=== PATIENT | male | born 1955 | race Caucasian/White ===

== ENCOUNTER 2017-02-26 08:45 | Emergency (ER) | payer OTHER ==
--- NOTE | 2017-02-26 09:25 | ER Document Report ---
ED Medical Screen (RME) - General Chief Complaint: Lower Abdominal Pain Stated Complaint: BLOOD IN URINE Notes: Patient is complaining of blood in urine for the past week. Patient has a history of bladder and prostate cancer with removal of these organs in [place] in November,. He has a urostomy bag. He has and doing well and is scheduled for his one-year checkup later this month. This bleeding started about a week ago. He has some discomfort in his lower abdomen, but no other symptoms of a UTI. Unaware of any fever. TRAVEL OUTSIDE OF THE [place] IN LAST 30 DAYS: No - Related Data Allergies/Adverse Reactions: No Known Allergies Allergy (Verified 02/26/17 08:58) Past Medical History - Past Medical History Cardiac Medical History: Reports: Hx Hypertension - on meds Denies: Hx Coronary Artery Disease, Hx Heart Attack Pulmonary Medical History: Denies: Hx Asthma, Hx Bronchitis, Hx COPD - denies, Hx Pneumonia Neurological Medical History: Denies: Hx Cerebrovascular Accident, Hx Seizures Renal/ Medical History: Denies: Hx Peritoneal Dialysis Musculoskeltal Medical History: Denies Hx Arthritis - Immunizations Hx Diphtheria, Pertussis, Tetanus Vaccination: - unsure
[2017-02-26 09:40] LABS: ABSOLUTE LYMPHOCYTES (AUTO) 1.4 10^3/uL (0.5-4.7); ABSOLUTE MONOCYTES (AUTO) 1.9 10^3/uL (0.1-1.4); ABSOLUTE NEUT (AUTO) 12.8 10^3/uL (1.7-8.2); BASOPHILS % (AUTO) 0.3 % (0-2); EOSINOPHILS % (AUTO) 0.2 % (0-6); HEMATOCRIT 44.1 % (37.9-51.0); HEMOGLOBIN 14.9 g/dL (13.5-17.0); HGB HCT DIFFERENCE 0.6; LYMPHOCYTES % (AUTO) 8.6 % (13-45); MEAN CORPUSCULAR HEMOGLOBIN 29.5 pg (27.0-33.4); MEAN CORPUSCULAR HGB CONC 33.8 g/dL (32.0-36.0); MEAN CORPUSCULAR VOLUME 87 fl (80-97); MONOCYTES % (AUTO) 11.5 % (3-13); RED BLOOD COUNT 5.07 10^6/uL (4.35-5.55); RED CELL DISTRIBUTION WIDTH 14.7 % (11.5-14.0); SEGMENTED NEUTROPHILS % (AUTO) 79.4 % (42-78); WHITE BLOOD COUNT 16.1 10^3/uL (4.0-10.5)
--- NOTE | 2017-02-26 09:53 | ER Document Report ---
ED General - General Chief Complaint: Lower Abdominal Pain Stated Complaint: BLOOD IN URINE Time seen by provider: 09:48 Mode of Arrival: Ambulatory Information source: Patient Notes: 61-year-old male who reports seeing what he thinks is blood in his urostomy bag approximately week ago and then the next day began developing diffuse abdominal pain and bilateral chest pain. He reports chest and all pain occurs at the same time and is intermittent in nature not associated with eating or exertion. He denies associated fever, chills, vomiting, cough, or shortness of breath or he does report occasional nausea with the discomfort. He denies hematemesis , hemorrhages, or melena. He does think he might of been constipated for the past 2 days. He reports no prior history of pain like this. Physical Exam: General: Alert, appears well. HEENT: Normocephalic. Atraumatic. PERRLA. Extraocular movements intact. Oropharynx clear. Mucous membranes moist Neck: Supple. Non-tender. Respiratory: No respiratory distress. Clear and equal breath sounds bilaterally. Cardiovascular: Regular rate and rhythm. PMI not displaced nontender to palpation Abdominal: Normal Inspection. Urostomy site appears healthy. Mild tenderness in all 4 quadrants no guarding rebound rigidity or referred pain normal male testes downgoing no hernias no masses no tenderness rectal normal tone and brown stool no masses not tender Back: Non-tender. No deformity or step off. Extremities: Moves all four extremities. Upper extremities: Normal inspection. Non-tender. Normal color. Normal ROM. Normal temperature. Lower extremities: Normal inspection. Non-tender. No edema. Normal color. Normal ROM. Normal temperature. Neurological: Speech clear mentation normal moves all 4 extremities well Psychological: Normal affect. Normal Mood. Skin: Warm. Dry. Normal color. TRAVEL OUTSIDE OF THE [place] IN LAST 30 DAYS: No - Related Data Allergies/Adverse Reactions: No Known Allergies Allergy (Verified 02/26/17 08:58) Past Medical History - Social History Smoking Status: Current Every Day Smoker Family History: None Patient has suicidal ideation: No Patient has homicidal ideation: No - Past Medical History Cardiac Medical History: Reports: Hx Hypertension - on meds Denies: Hx Coronary Artery Disease, Hx Heart Attack Pulmonary Medical History: Denies: Hx Asthma, Hx Bronchitis, Hx COPD - denies, Hx Pneumonia Neurological Medical History: Denies: Hx Cerebrovascular Accident, Hx Seizures Renal/ Medical History: Denies: Hx Peritoneal Dialysis Musculoskeltal Medical History: Denies Hx Arthritis Past Surgical History: Reports: Hx Genitourinary Surgery - Surgery removed bladder and prostate [facility] - Immunizations Hx Diphtheria, Pertussis, Tetanus Vaccination: - unsure Review of Systems - Review of Systems Constitutional: denies: Chills, Fever EENT: denies: Ear pain, Throat pain Cardiovascular: See HPI Respiratory: denies: Cough, Short of breath Gastrointestinal: See HPI Genitourinary: Hematuria Male Genitourinary: denies: Testicular pain Musculoskeletal: denies: Back pain, Leg swelling, Ankle swelling Skin: denies: Rash Hematologic/Lymphatic: denies: Swollen glands Neurological/Psychological: denies: Weakness, Numbness Physical Exam - Vital signs Vitals: Temp Pulse Resp BP Pulse Ox 98.3 F 124 H 16 115/86 H 98 02/26/17 09:00 02/26/17 09:00 02/26/17 09:00 02/26/17 09:00 02/26/17 09:00 Course - Re-evaluation Re-evalutation: 02/26/17 12:39 Urinalysis results consistent with urinary tract infection. Patient was placed on antibiotics and told medicine for pain and nausea Patient's LFTs are mildly elevated and he has numerable areas suspicious for liver metastases on CT scan and ultrasound. Patient had an appointment with his oncologist Dr. Combs at 9:00 this morning but came here instead. I discussed the above CT findings with her office and they asked that the patient come in tomorrow at 10:00 for follow-up. Patient also be followed up for UTI symptoms at that point. The request have ordered a CEA to be added to his labs here. Patient received chemotherapy through that office prior to having his bladder resection to [place] last year. 02/26/17 12:43 - Vital Signs Vital signs: Temp Pulse Resp BP Pulse Ox 98.3 F 124 H 16 115/86 H 98 02/26/17 09:00 02/26/17 09:00 02/26/17 09:00 02/26/17 09:00 02/26/17 09:00 - Laboratory Result Diagrams: 02/26/17 09:15 02/26/17 09:15 Laboratory results interpreted by me: 02/26/17 02/26/17 02/26/17 09:15 09:15 09:15 WBC 16.1 H RDW 14.7 H Seg Neutrophils % 79.4 H Lymphocytes % 8.6 L Absolute Neutrophils 12.8 H Absolute Monocytes 1.9 H Sodium 132.4 L Chloride 96 L Carbon Dioxide 20 L BUN 34 H Glucose 374 H Total Bilirubin 2.6 H Direct Bilirubin 1.8 H AST 154 H ALT 164 H Alkaline Phosphatase 469 H Creatine Kinase 342 H Lipase 320.1 H Urine Protein Urine Glucose (UA) Urine Blood Urine Urobilinogen Ur Leukocyte Esterase 02/26/17 09:45 WBC RDW Seg Neutrophils % Lymphocytes % Absolute Neutrophils Absolute Monocytes Sodium Chloride Carbon Dioxide BUN Glucose Total Bilirubin Direct Bilirubin AST ALT Alkaline Phosphatase Creatine Kinase Lipase Urine Protein 100 H Urine Glucose (UA) 50 H Urine Blood LARGE H Urine Urobilinogen 2.0 H Ur Leukocyte Esterase MODERATE H 02/26/17 12:39 - Diagnostic Test Radiology reviewed: Image reviewed, Reports reviewed - EKG Interpretation by Me Additional EKG results interpreted by me: 02/26/17 10:07 EKG reviewed by myself sinus tachycardia 114 no acute changes Discharge - Discharge Clinical Impression: Liver masses, History of bladder cancer UTI (urinary tract infection) Qualifiers: Urinary tract infection type: site unspecified Hematuria presence: with hematuria Qualified Code(s): N39.0 - Urinary tract infection, site not specified ; R31.9 - Hematuria, unspecified Condition: Stable Disposition: HOME, SELF-CARE Instructions: Urinary Tract Infection ([facility]) Additional Instructions: The CT scan and ultrasound done today showed areas in your liver that we're concerned represent cancer. See Dr. Combs at her office tomorrow at 10:00 AM for further evaluation of this. Return to emergency department for fever over 101, worse pain, vomiting, or other problems Prescriptions: Cephalexin Monohydrate [Keflex 500 mg Capsule] 500 mg PO QID #40 capsule Promethazine HCl [Phenergan 25 mg Tablet] 1 tab PO Q6H PRN #15 tablet PRN Reason: Tramadol HCl 50 mg PO BID #20 tablet Referrals: ANA COMBS MD [ACTIVE STAFF] - Follow up tomorrow
[2017-02-26 09:55] LABS: ALANINE AMINOTRANSFERASE 164 U/L (21-72); ALBUMIN 3.8 g/dL (3.5-5.0); ALKALINE PHOSPHATASE 469 U/L (38-126); ANION GAP 16 (5-19); ASPARTATE AMINO TRANSFERASE 154 U/L (17-59); BILIRUBIN,DIRECT 1.8 mg/dL (0.0-0.4); BILIRUBIN,TOTAL 2.6 mg/dL (0.2-1.3); BLOOD UREA NITROGEN 34 mg/dL (7-20); CALCIUM 9.7 mg/dL (8.4-10.2); CARBON DIOXIDE 20 mmol/L (22-30); CHLORIDE 96 mmol/L (98-107); CREATININE RESULT 1.02 mg/dL (0.52-1.25); GLUCOSE 374 mg/dL (75-110); LIPASE 320.1 U/L (23-300); POTASSIUM 4.2 mmol/L (3.6-5.0); SODIUM 132.4 mmol/L (137-145); TOTAL PROTEIN 7.4 g/dL (6.3-8.2)
[2017-02-26 09:56] LABS: PROTHROMBIN TIME 14.5 SEC (11.4-15.4)
[2017-02-26 10:11] LABS: AMORPHOUS SEDIMENT,URINE TRACE /HPF; APPEARANCE,URINE CLOUDY; BILIRUBIN,URINE NEGATIVE (NEGATIVE); GLUCOSE, URINE 50 mg/dL (NEGATIVE); KETONES,URINE NEGATIVE (NEGATIVE); LEUKOCYTE ESTERASE,URINE MODERATE (NEGATIVE); NITRITE,URINE NEGATIVE (NEGATIVE); PROTEIN,URINE 100 mg/dL (NEGATIVE); URINE SPECIFIC GRAVITY 1.012
[2017-02-26 11:05] LABS: CREATINE KINASE 342 U/L (55-170)
[2017-02-26 11:06] LABS: ALCOHOL < 10 mg/dL (NONE DETECTED)
[2017-02-26 12:41] LABS: CREATINE KINASE MB 0.51 ng/mL (<4.55)
[2017-02-26 12:47] LABS: TROPONIN I < 0.012 ng/mL
[2017-02-26 13:05] VITALS: BP 113/82
--- NOTE | 2017-02-26 13:30 | EKG REPORT ---
SEVERITY:- BORDERLINE ECG - SINUS TACHYCARDIA PROBABLE LEFT ATRIAL ABNORMALITY LOW VOLTAGE IN FRONTAL LEADS : Confirmed by: Evelio Barbosa MD 26-Feb-2017 13:30:20
== END 2017-02-26 13:05 | disposition home or self-care (01) ==
LOC: ER 08:45
DX: R16.0 Hepatomegaly, not elsewhere classified (principal); N39.0 Urinary tract infection, site not specified; R31.9 Hematuria, unspecified; R10.30 Lower abdominal pain, unspecified; K59.00 Constipation, unspecified; I10 Essential (primary) hypertension; Z85.51 Personal history of malignant neoplasm of bladder; Z93.6 Other artificial openings of urinary tract status
CPT/HCPCS: 36415; 74177; 76700; 80053; 80307; 81001; 82272; 82378; 82550; 82553; 83690; 84484; 85025; 85610; 87086; 87088; 87186; 93005; 93010; 99284

== ENCOUNTER 2017-02-28 10:02 | Day surgery (SDC) | payer OTHER ==
[2017-02-28 10:37] LABS: HEMATOCRIT 41.8 % (37.9-51.0); HEMOGLOBIN 14.7 g/dL (13.5-17.0); HGB HCT DIFFERENCE 2.3; MEAN CORPUSCULAR HEMOGLOBIN 29.7 pg (27.0-33.4); MEAN CORPUSCULAR HGB CONC 35.1 g/dL (32.0-36.0); MEAN CORPUSCULAR VOLUME 85 fl (80-97); RED BLOOD COUNT 4.94 10^6/uL (4.35-5.55); RED CELL DISTRIBUTION WIDTH 14.5 % (11.5-14.0); WHITE BLOOD COUNT 10.6 10^3/uL (4.0-10.5)
[2017-02-28 10:46] LABS: PROTHROMBIN TIME 13.4 SEC (11.4-15.4)
[2017-02-28 10:47] LABS: PARTIAL THROMBOPLASTIN TIME 37.4 SEC (23.5-35.8)
[2017-02-28] MEDS ORDERED: MIDAZOLAM 2 MG/2 ML INJ ONE (11:23)
[2017-02-28] MEDS ORDERED: FENTANYL CITRATE INJ/PF 100 MCG/2 ML AMPUL ONE (11:23)
[2017-02-28 14:11] VITALS: BP 136/83
== END 2017-02-28 14:10 | disposition home or self-care (01) ==
LOC: RAD 10:02
PROVIDERS: ATTEND Internal Medicine Medical Oncology
PROC: 0FB13ZX Excision of Right Lobe Liver, Percutaneous Approach, Diagnostic (ICD-10-PCS; principal; 2017-02-28)
DX: C7A.1 Malignant poorly differentiated neuroendocrine tumors (principal); Z85.46 Personal history of malignant neoplasm of prostate; Z85.51 Personal history of malignant neoplasm of bladder
CPT/HCPCS: 36415; 82962; 85027; 85610; 85730; 88342 ×2; 88341 ×2; 88305 ×2; 77012; 47000; J2250; J3010

== ENCOUNTER → 2017-03-07 | Outpatient (CLI) | payer OTHER | LOC: RAD 13:22 | PROVIDERS: ATTEND Internal Medicine Medical Oncology | DX: C67.9 Malignant neoplasm of bladder, unspecified (principal); C78.7 Secondary malignant neoplasm of liver and intrahepatic bile duct | CPT/HCPCS: 71260 ==

== ENCOUNTER → 2017-05-07 | Outpatient (CLI) | payer OTHER ==
--- NOTE | 2017-05-07 10:25 | RADIOLOGY REPORT (SQ) ---
EXAM DESCRIPTION: CT CHEST WITH COMPLETED DATE/TIME: 05/07/2017 10:09 am REASON FOR STUDY: BLADDER CANCER C67.9 MALIGNANT NEOPLASM OF BLADDER, UNSPECIFIED COMPARISON: None. TECHNIQUE: CT scan of the chest performed using helical scanning technique with dynamic intravenous contrast injection. Images reviewed with lung, soft tissue and bone windows. Reconstructed coronal and sagittal MPR images reviewed. All images stored on PACS. All CT scanners at this facility use dose modulation, iterative reconstruction, and/or weight based d osing when appropriate to reduce radiation dose to as low as reasonably achievable (ALARA). [facility]: Dose Right [facility]: CareDose [facility]: Dose Right [facility]: Teradose 4D [facility]: Rivalfox CONTRAST TYPE AND DOSE: contrast/concentration: Isovue 370.00 mg/ml; Total Contrast Delivered: 70.0 ml; Total Saline Delivered: 66.1 ml RENAL FUNCTION: Creatinine 0.5 BUN 17 RADIATION DOSE: Up-to-date CT equipment and radiation dose reduction techniques were employed. CTDIv ol: 5.5 - 13.1 mGy. DLP: 824 mGy-cm. . LIMITATIONS: None. FINDINGS: LUNGS AND PLEURA: No opacities, nodules, masses. No pneumothorax. No effusions. HILAR AND MEDIASTINAL STRUCTURES: No identified masses or abnormal nodes. HEART AND VASCULAR STRUCTURES: There is a minimal pericardiac effusion. HARDWARE: None in the chest. UPPER ABDOMEN: See separate report of the CT of the abdomen. THYROID AND OTHER SOFT TISSUES: No masses. No adenopathy. BONES: No significant finding. OTHER: No other significant finding. IMPRESSION: Minimal pericardial effusion. There is no evidence of metastases in chest. TECHNICAL DOCUMENTATION: JOB ID: [id number] Quality ID # [id number]: Final reports with documentation of one or more dose reduction techniques (e.g., Au tomated exposure control, adjustment of the mA and/or kV according to patient size, use of iterative reconstruction technique) 2010 [employer]- All Rights Reserved
--- NOTE | 2017-05-07 10:48 | RADIOLOGY REPORT (SQ) ---
EXAM DESCRIPTION: CT ABDOMEN IV CONTRAST ONLY COMPLETED DATE/TIME: 05/07/2017 10:09 am REASON FOR STUDY: BLADDER CANCER C67.9 MALIGNANT NEOPLASM OF BLADDER, UNSPECIFIED COMPARISON: 02/26/2017 TECHNIQUE: CT scan of the abdomen performed with intravenous and without oral contrast using helical scanning technique with dynamic intravenous contrast injection. Images reviewed with lung, soft tiss ue, and bone windows. Reconstructed coronal and sagittal MPR images reviewed. Delayed images for eval uation of the urinary system also acquired and evaluated. All images stored on PACS. All CT scanners at this facility use dose modulation, iterative reconstruc tion, and/or weight based dosing when appropriate to reduce radiation dose to as low as reasonably ac hievable (ALARA). [facility]: Dose Right [facility]: CareDose [facility]: Dose Right [facility]: Teradose 4D [facility]: BitPoster CONTRAST TYPE AND DOSE: 70 Isovue 370- low osmolar. RENAL FUNCTION: Creatinine 0.5 BUN 17 RADIATION DOSE: 24.7 mGy. LIMITATIONS: None. FINDINGS: LOWER CHEST: See separate report of the CT of the chest. LIVER: The overall appearance of the liver is markedly improved from the earlier study from 7. There is a nonspecific 8 mm hypodensity in the right lobe of the liver on image 56 series 2 PE th is appears to enhance peripherally, suggesting a possible hemangioma. There is a 25 mm low- density lesion on image 30 series 3. This shows no significant enhancement, but is of greater density than a simple cyst. SPLEEN: Normal size. No focal lesions. PANCREAS: No masses. No significant calcifications. No adjacent inflammation or peripancreatic fluid collections. Pancreatic duct not dilated. GALLBLADDER: No identified stones by CT criteria. No inflammatory changes to suggest cholecystitis. ADRENAL GLANDS: No significant masses or asymmetry. RIGHT KIDNEY AND URETER: No solid masses. No significant calcifications. No hydronephrosis or hyd roureter. LEFT KIDNEY AND URETER: No solid masses. There is a 6 cm cyst on the upper pole the left kidney. N o significant calcifications. No hydronephrosis or hydroureter. AORTA AND VESSELS: No aneurysm. No dissection. Renal arteries, SMA, celiac without stenosis. RETROPERITONEUM: No retroperitoneal adenopathy, hemorrhage or masses. BOWEL AND PERITONEAL CAVITY: No masses or inflammatory changes. No free fluid or peritoneal masses. APPENDIX: Not included ABDOMINAL WALL: No masses. No hernias. BONES: No significant or acute findings. OTHER: There appears to be an ileostomy. The suggests patient has an ileal loop. IMPRESSION: There is marked improvement in the appearance of the liver with 2 low-density lesions as described. TECHNICAL DOCUMENTATION: JOB ID: [id number] Quality ID # [id number]: Final reports with documentation of one or more dose reduction techniques (e.g., Au tomated exposure control, adjustment of the mA and/or kV according to patient size, use of iterative reconstruction technique) 2010 [employer]- All Rights Reserved
== END ==
LOC: RAD 09:02
PROVIDERS: ATTEND Internal Medicine Medical Oncology
DX: C67.9 Malignant neoplasm of bladder, unspecified (principal)
CPT/HCPCS: 71260; 74160

== ENCOUNTER → 2017-07-17 | Outpatient (CLI) | payer OTHER ==
--- NOTE | 2017-07-17 15:05 | RADIOLOGY REPORT (SQ) ---
EXAM DESCRIPTION: CT ABDOMEN IV CONTRAST ONLY COMPLETED DATE/TIME: 07/17/2017 10:46 am REASON FOR STUDY: LIVER AND BLADDER CA C78.7 SECONDARY MALIG NEOPLASM OF LIVER AND INTRAHEPATIC JOHNNA COMPARISON: CT chest 05/07/2017, CT abdomen pelvis 05/07/2017, 02/26/2017 CT liver biopsy 02/28/2017 TECHNIQUE: CT scan of the abdomen performed with intravenous and without oral contrast using helical scanning technique with dynamic intravenous contrast injection. Images reviewed with lung, soft tiss ue, and bone windows. Reconstructed coronal and sagittal MPR images reviewed. Delayed images for eval uation of the urinary system also acquired and evaluated. All images stored on PACS. All CT scanners at this facility use dose modulation, iterative reconstruc tion, and/or weight based dosing when appropriate to reduce radiation dose to as low as reasonably ac hievable (ALARA). [facility]: Dose Right [facility]: CareDose [facility]: Dose Right [facility]: Teradose 4D [facility]: Teranode CONTRAST TYPE AND DOSE: contrast/concentration: Isovue 370.00 mg/ml; Total Contrast Delivered: 71.0 ml; Total Saline Delivered: 66.0 ml RENAL FUNCTION: Creatinine 0.9 RADIATION DOSE: Up-to-date CT equipment and radiation dose reduction techniques were employed. CTDIv ol: 6.3 - 7.5 mGy. DLP: 405 mGy-cm. . LIMITATIONS: None. FINDINGS: LOWER CHEST: No significant findings. No nodules or infiltrates. LIVER: The previously biopsied mass in the posterior right lobe liver currently measures 1.8 cm in di ameter (was 2.3 cm in diameter 05/07/2017 and 5.8 cm in diameter on 02/26/2017). Other smaller liver m etastatic lesions seen on CT exam 02/26/2017 and 05/07/2017 are decreased in size. SPLEEN: Normal size. No focal lesions. PANCREAS: No masses. No significant calcifications. No adjacent inflammation or peripancreatic fluid collections. Pancreatic duct not dilated. GALLBLADDER: No identified stones by CT criteria. No inflammatory changes to suggest cholecystitis. ADRENAL GLANDS: No significant masses or asymmetry. RIGHT KIDNEY AND URETER: No solid masses. No significant calcifications. No hydronephrosis or hyd roureter. LEFT KIDNEY AND URETER: No solid masses. No significant calcifications. Mild left hydronephrosis and upper hydroureter, new compared to prior studies. AORTA AND VESSELS: No aneurysm. No dissection. Renal arteries, SMA, celiac without stenosis. RETROPERITONEUM: No retroperitoneal adenopathy, hemorrhage or masses. BOWEL AND PERITONEAL CAVITY: No masses or inflammatory changes. No free fluid or peritoneal masses. APPENDIX: Not in the field of view ABDOMINAL WALL: Urinary conduit ostomy at the level of the umbilicus to the right of midline. BONES: No significant or acute findings. OTHER: No other significant finding. IMPRESSION: Decrease in size of liver lesions compared to previous studies TECHNICAL DOCUMENTATION: JOB ID: [id number] Quality ID # 436: Final reports with documentation of one or more dose reduction techniques (e.g., Au tomated exposure control, adjustment of the mA and/or kV according to patient size, use of iterative reconstruction technique) 2010 [employer]- All Rights Reserved
== END ==
LOC: RAD 10:35
PROVIDERS: ATTEND Internal Medicine Medical Oncology
DX: C78.7 Secondary malignant neoplasm of liver and intrahepatic bile duct (principal); C67.9 Malignant neoplasm of bladder, unspecified
CPT/HCPCS: 74160

== ENCOUNTER 2017-11-19 07:06 | Emergency (ER) | payer OTHER ==
[2017-11-19] MEDS ORDERED: ASPIRIN 81 MG TABLET, CHEWABLE PO ONE (07:49)
--- NOTE | 2017-11-19 07:56 | ER Document Report ---
ED General - General Chief Complaint: Abdominal Pain Stated Complaint: CHEST PAIN Time Seen by Provider: 11/19/17 07:39 Notes: Patient says that he has been experiencing pain in his abdomen and chest for the past 2-3 days. It has been intermittent, but almost constant. Seems to start in his abdomen and goes up into his chest. Patient has a history of bladder cancer, currently on chemotherapy, and he has oxycodone 5 mg as needed for pain. He has been taking that for this current pain without any relief. He says that he has not had any nausea or vomiting and no diarrhea. He had no bowel movement for 3 days and then had a small bowel movement this morning. Does have worsening of the pain when he takes a deep breath. Has noticed some probably blood in his urine and its dark in color. Patient has no history of any cardiac disease. Has never had a cardiac cath and no ones ever told him he has coronary artery disease. Patient was diagnosed with bladder cancer 3 years ago and has been receiving chemotherapy under Dr. Combs. He has a ureterostomy bag in the right lower quadrant. PMH: NIDDM, hypertension, TRAVEL OUTSIDE OF THE [place] IN LAST 30 DAYS: No - Related Data Allergies/Adverse Reactions: No Known Allergies Allergy (Verified 11/19/17 07:55) Past Medical History - Social History Smoking Status: Current Every Day Smoker Family History: None, Reviewed & Not Pertinent - Past Medical History Cardiac Medical History: Reports: Hx Hypertension - on meds Denies: Hx Coronary Artery Disease, Hx Heart Attack Past Surgical History: Reports: Hx Genitourinary Surgery - Surgery removed bladder and prostate [facility] - Immunizations Hx Diphtheria, Pertussis, Tetanus Vaccination: No - unsure Review of Systems - Review of Systems Notes: REVIEW OF SYSTEMS: CONSTITUTIONAL : Denies fever. EENT: Denies eye, ear, nose or mouth or throat pain or other symptoms. CARDIOVASCULAR: See HPI. RESPIRATORY: Denies cough, chest congestion, or shortness of breath. GASTROINTESTINAL: See HPI. GENITOURINARY: Denies difficulty or painful urinating, urinary frequency, but thinks there is blood in his urine. MUSCULOSKELETAL: Denies back or neck pain. Denies joint pain or swelling. SKIN: Denies rash or skin lesions. NEUROLOGICAL: Denies LOC or altered mental status. Denies headache. Denies sensory loss or motor deficits. ALL OTHER SYSTEMS REVIEWED AND NEGATIVE. Physical Exam - Vital signs Vitals: Temp Pulse Resp BP Pulse Ox 98.0 F 125 H 18 134/82 H 100 11/19/17 07:21 11/19/17 07:21 11/19/17 07:21 11/19/17 07:21 11/19/17 07:21 Interpretation: Tachycardic - At 125. - Notes Notes: PHYSICAL EXAMINATION: GENERAL: Well-appearing, in no acute distress. Comfortable and does not appear to be in pain. Heart rate 125 at triage, but about 100 at bedside by my exam. HEAD: Atraumatic, normocephalic. EYES: Pupils equal round and reactive to light, extraocular movements intact. ENT: oropharynx clear without exudates. Moist mucous membranes. NECK: Normal range of motion, supple. LUNGS: Breath sounds clear and equal bilaterally. HEART: Regular rate and rhythm without murmurs. ABDOMEN: Soft, minor diffuse tenderness. No guarding or rebound. Ureterostomy bag in the right lower quadrant. BACK: No tenderness throughout entire back. EXTREMITIES: Normal range of motion without pain. NEUROLOGICAL: Normal speech, normal gait. Normal sensory, motor, and reflex exams. Awake, alert, and oriented x3. Cranial nerves normal. PSYCH: Normal mood, normal affect. SKIN: Warm, dry, no rashes. Course - Re-evaluation Re-evalutation: 11/19/17 14:50 Discussed all the patient's results with him and his daughter present in the room. - Vital Signs Vital signs: Temp Pulse Resp BP Pulse Ox 98.0 F 125 H 19 120/84 95 11/19/17 07:21 11/19/17 07:21 11/19/17 09:01 11/19/17 09:00 11/19/17 09:01 - Laboratory Result Diagrams: 11/19/17 07:41 11/19/17 07:41 Laboratory results interpreted by me: 11/19/17 11/19/17 11/19/17 07:41 07:41 07:59 WBC 11.7 H RDW 16.4 H Lymphocytes % 10.1 L Absolute Neutrophils 8.8 H Absolute Monocytes 1.5 H Sodium 134.3 L Chloride 92 L Glucose 218 H Total Bilirubin 2.9 H Direct Bilirubin 1.9 H AST 220 H ALT 109 H Alkaline Phosphatase 372 H Lipase 657.4 H Urine Protein >=500 H Urine Ketones TRACE H Urine Blood SMALL H Urine Bilirubin SMALL H Urine Urobilinogen 4.0 H Ur Leukocyte Esterase SMALL H - Diagnostic Test Radiology results interpreted by me: 11/19/17 09:38 Chest x-ray is normal. - EKG Interpretation by Me EKG shows normal: Sinus rhythm Rate: Tachycardia Rhythm: PVC's, Other - Intermittent bigeminy Discharge - Discharge Clinical Impression: Abdominal pain, Malignant neoplasm metastatic from bladder Condition: Stable Disposition: HOME, SELF-CARE Additional Instructions: ABDOMINAL PAIN: There are many causes of abdominal pain. Pain can mean a serious problem requiring surgery (such as appendicitis). It can also be an innocent problem that goes away on its own (such as a viral infection). Often, time must pass to determine the cause of pain. The physician does not feel that hospitalization is necessary, at present. Things may change within the next 24 hours. Call the doctor or come back for re- examination if any problems occur, such as: (1) Pain that becomes more severe, steady, or becomes concentrated in one specific area. Also, pain that is more severe with movement or coughing. (2) Vomiting that persists or becomes more frequent. (3) Blood in the vomitus, urine, or bowel movements. Blood in the stool may have a tarry or black appearance. (4) Shaking chills or fever greater than 100 degrees F. (5) The abdomen becomes more distended or swollen. (6) Bowel movements cease. (7) Failure to improve as expected. Your CT scan shows that your bladder cancer has spread into your liver and into adjacent parts of your abdomen. ANTINAUSEA MEDICATION: You have been given a medication to suppress nausea and vomiting. This type of medication can be given as a shot, pill, or suppository. It will usually last for many hours. Pills and shots usually last six to eight hours, suppositories last about 12 hours. For the typical illness, only one or two doses of the medication may be necessary. Mild lightheadedness may occur. This type of medicine can cause drowsiness. Do not drive or operate dangerous machinery while under its influence. Do not mix with alcohol. See your doctor at once if you have muscle spasms or tightness, or uncontrollable motions (particularly of the neck, mouth, or jaw). Persistent vomiting or severe lightheadedness should also be evaluated by the physician. ORAL NARCOTIC MEDICATION: You have been given a prescription for pain control. This medication is a narcotic. It's best taken with food, as nausea can result if taken on an empty stomach. Don't operate machinery or drive within six hours of taking this medication. Do not combine this medicine with alcohol, or with any medication which can cause sedation (such as cold tablets or sleeping pills) unless you get permission from the physician. Narcotics tend to cause constipation. If possible, drink plenty of fluids and eat a diet high in fiber and fruits. FOLLOW-UP CARE: If you have been referred to a physician for follow-up care, call the physician s office for an appointment as you were instructed or within the next two days. If you experience worsening or a significant change in your symptoms, notify the physician immediately or return to the Emergency Department at any time for re-evaluation. Keep your appointment to see Dr. Combs tomorrow in her office. Prescriptions: Oxycodone HCl 5 - 10 mg PO Q4HP PRN #40 tablet PRN Reason: Promethazine HCl [Phenergan 25 mg Tablet] 25 mg PO Q4HP PRN #25 tablet PRN Reason: Referrals: ANA COMBS MD [ACTIVE STAFF] - Follow up tomorrow
[2017-11-19 08:00] LABS: ABSOLUTE BASOPHILS # (AUTO) 0.1 10^3/uL (0.0-0.2); ABSOLUTE EOSINOPHILS # (AUTO) 0.1 10^3/uL (0.0-0.6); ABSOLUTE LYMPHOCYTES (AUTO) 1.2 10^3/uL (0.5-4.7); ABSOLUTE MONOCYTES (AUTO) 1.5 10^3/uL (0.1-1.4); ABSOLUTE NEUT (AUTO) 8.8 10^3/uL (1.7-8.2); EOSINOPHILS % (AUTO) 0.6 % (0-6); HEMATOCRIT 45.2 % (37.9-51.0); HEMOGLOBIN 15.6 g/dL (13.5-17.0); LYMPHOCYTES % (AUTO) 10.1 % (13-45); MEAN CORPUSCULAR HGB CONC 34.5 g/dL (32.0-36.0); MEAN CORPUSCULAR VOLUME 93 fl (80-97); MONOCYTES % (AUTO) 12.8 % (3-13); PLATELET COUNT 212 10^3/uL (150-450); RED BLOOD COUNT 4.88 10^6/uL (4.35-5.55); RED CELL DISTRIBUTION WIDTH 16.4 % (11.5-14.0); SEGMENTED NEUTROPHILS % (AUTO) 75.5 % (42-78); TOTAL CELLS COUNTED % (AUTO) 100 %; WHITE BLOOD COUNT 11.7 10^3/uL (4.0-10.5)
[2017-11-19 08:06] LABS: INTERNATIONAL RATION (INR) 0.95; PROTHROMBIN TIME 13.4 SEC (11.4-15.4)
[2017-11-19] MEDS ORDERED: KETOROLAC TROMETHAMINE INJ/PF 30 MG/1 ML SDV IV ONE (08:06)
[2017-11-19] MEDS ORDERED: NITROGLYCERIN 5 MG (0.2 MG/HR) PATCH.TD24 TD ONE (08:06)
[2017-11-19 08:17] LABS: AMORPHOUS SEDIMENT,URINE 1+ /HPF; APPEARANCE,URINE CLOUDY; BILIRUBIN,URINE SMALL (NEGATIVE); COLOR,URINE AMBER; GLUCOSE, URINE NEGATIVE (NEGATIVE); KETONES,URINE TRACE mg/dL (NEGATIVE); LEUKOCYTE ESTERASE,URINE SMALL (NEGATIVE); NITRITE,URINE NEGATIVE (NEGATIVE); PROTEIN,URINE >=500 mg/dL (NEGATIVE); URINE SPECIFIC GRAVITY 1.013
[2017-11-19 08:19] LABS: ALANINE AMINOTRANSFERASE 109 U/L (21-72); ALBUMIN 4.5 g/dL (3.5-5.0); ALKALINE PHOSPHATASE 372 U/L (38-126); ANION GAP 14 (5-19); ASPARTATE AMINO TRANSFERASE 220 U/L (17-59); BILIRUBIN,DIRECT 1.9 mg/dL (0.0-0.4); BILIRUBIN,TOTAL 2.9 mg/dL (0.2-1.3); BLOOD UREA NITROGEN 16 mg/dL (7-20); CALCIUM 10.2 mg/dL (8.4-10.2); CARBON DIOXIDE 28 mmol/L (22-30); CHLORIDE 92 mmol/L (98-107); CREATINE KINASE 112 U/L (55-170); GLUCOSE 218 mg/dL (75-110); LIPASE 657.4 U/L (23-300); POTASSIUM 4.1 mmol/L (3.6-5.0); SODIUM 134.3 mmol/L (137-145)
[2017-11-19 08:31] LABS: CREATINE KINASE MB 0.74 ng/mL (<4.55)
--- NOTE | 2017-11-19 08:31 | RADIOLOGY REPORT (SQ) ---
EXAM DESCRIPTION: CHEST SINGLE VIEW COMPLETED DATE/TIME: 11/19/2017 8:19 am REASON FOR STUDY: Chest and abdominal pain COMPARISON: CT from 05/07/2017. EXAM PARAMETERS: NUMBER OF VIEWS: One view. TECHNIQUE: Single frontal radiographic view of the chest acquired. RADIATION DOSE: NA LIMITATIONS: None. FINDINGS: LUNGS AND PLEURA: No opacities, masses or pneumothorax. No pleural effusion. MEDIASTINUM AND HILAR STRUCTURES: No masses. Contour normal. HEART AND VASCULAR STRUCTURES: Heart normal in size. Normal vasculature. BONES: No acute findings. HARDWARE: None in the chest. OTHER: No other significant finding. IMPRESSION: NO ACUTE RADIOGRAPHIC FINDING IN THE CHEST. TECHNICAL DOCUMENTATION: JOB ID: [id number] [employer]- All Rights Reserved
[2017-11-19 08:33] LABS: TROPONIN I < 0.012 ng/mL
--- NOTE | 2017-11-19 11:13 | RADIOLOGY REPORT (SQ) ---
EXAM DESCRIPTION: U/S ABDOMEN LIMITED W/O DOP COMPLETED DATE/TIME: 11/19/2017 11:03 am REASON FOR STUDY: Abdom pain with slight elevated LFTs and lipase COMPARISON: 02/26/2017 TECHNIQUE: Dynamic and static grayscale images acquired of the abdomen and recorded on PACS. Calo chinyere selected color Doppler and spectral images recorded. LIMITATIONS: None. FINDINGS: PANCREAS: No masses. Visualized pancreatic duct normal caliber. LIVER: Grossly stable liver lesions. No biliary ductal dilatation. LIVER VASCULATURE: Normal directional flow of the main portal vein and hepatic veins. GALLBLADDER: No stones. Normal wall thickness. No pericholecystic fluid. ULTRASOUND-DETECTED CINTRON'S SIGN: Negative. INTRAHEPATIC DUCTS AND COMMON DUCT: CBD and intrahepatic ducts normal caliber. No filling defects. INFERIOR VENA CAVA: Normal flow. AORTA: No aneurysm. RIGHT KIDNEY: Normal size. Normal echogenicity. No solid or suspicious masses. No hydronephrosis. No calcifications. PERITONEAL AND RIGHT PLEURAL SPACE: No ascites or effusions. OTHER: No other significant findings. IMPRESSION: GROSSLY STABLE LIVER LESIONS COMPATIBLE WITH KNOWN METASTATIC DISEASE. NORMAL GALLBLADD ER. TECHNICAL DOCUMENTATION: JOB ID: [id number] [employer]- All Rights Reserved
--- NOTE | 2017-11-19 13:42 | RADIOLOGY REPORT (SQ) ---
EXAM DESCRIPTION: CT ABD/PELVIS WITH IV ONLY COMPLETED DATE/TIME: 11/19/2017 1:31 pm REASON FOR STUDY: Hx bladder cancer, surgery, chemo, abdominal pain COMPARISON: Correlation made to ultrasound from 11/19/[address] from 07/17/2017 TECHNIQUE: CT scan of the abdomen and pelvis performed using helical scanning technique with dynamic intravenous contrast injection. No oral contrast. Images reviewed with lung, soft tissue, and bone windows. Reconstructed coronal and sagittal MPR images reviewed. Delayed images for evaluation of the urinary system also acquired. All images stored on PACS. All CT scanners at this facility use dose modulation, iterative reconstruction, and/or weight based d osing when appropriate to reduce radiation dose to as low as reasonably achievable (ALARA). [facility]: Dose Right [facility]: CareDose [facility]: Dose Right [facility]: Teradose 4D [facility]: [place] CONTRAST TYPE AND DOSE: contrast/concentration: Isovue 370.00 mg/ml; Total Contrast Delivered: 74.0 ml; Total Saline Delivered: 65.0 ml RENAL FUNCTION: GFR > 60. RADIATION DOSE: CT Rad equipment meets quality standard of care and radiation dose reduction techniq ues were employed. CTDIvol: 7.5 - 10.2 mGy. DLP: 889 mGy-cm.. LIMITATIONS: None. FINDINGS: LOWER CHEST: No significant findings. No nodules or infiltrates. LIVER: There is diffuse hepatic steatosis which limits evaluation of lesions. There are innumerable ill-defined low attenuating lesions throughout the liver as seen on ultrasound compatible with progre ssion of metastatic disease. SPLEEN: Normal size. No focal lesions. PANCREAS: No masses. No significant calcifications. No adjacent inflammation or peripancreatic fluid collections. Pancreatic duct not dilated. GALLBLADDER: No identified stones by CT criteria. No inflammatory changes to suggest cholecystitis. ADRENAL GLANDS: There is new nodular thickening of the adrenal glands measuring up to 8 mm on the lef t and 12 mm on the right concerning for new sites of metastatic disease. RIGHT KIDNEY AND URETER: No solid masses. No significant calcifications. No hydronephrosis or hyd roureter. LEFT KIDNEY AND URETER: Stable left renal cyst. No solid masses. No significant calcifications. No hydronephrosis or hydroureter. AORTA AND VESSELS: No aneurysm. No dissection. Renal arteries, SMA, celiac without stenosis. RETROPERITONEUM: No retroperitoneal adenopathy, hemorrhage or masses. BOWEL AND PERITONEAL CAVITY: Postsurgical change related to urostomy creation. No masses or inflamma tory changes. No free fluid or peritoneal masses. APPENDIX: Normal. PELVIS: No mass. No free fluid. Status post cystectomy with diverting urostomy. ABDOMINAL WALL: Postsurgical change. No masses. No hernias. BONES: Stable degenerative change without fracture or suspicious osseous lesion. OTHER: No other significant finding. IMPRESSION: SIGNIFICANT INTERVAL PROGRESSION OF METASTATIC DISEASE WITH INNUMERABLE LIVER LESIONS AN D BILATERAL ADRENAL LESIONS. NO ADDITIONAL ACUTE OR SIGNIFICANT FINDINGS. TECHNICAL DOCUMENTATION: JOB ID: [id number] Quality ID # [id number]: Final reports with documentation of one or more dose reduction techniques (e.g., Au tomated exposure control, adjustment of the mA and/or kV according to patient size, use of iterative reconstruction technique) 2010 [employer]- All Rights Reserved
[2017-11-19 15:22] VITALS: BP 121/87
--- NOTE | 2017-11-20 09:38 | EKG REPORT ---
SEVERITY:- ABNORMAL ECG - SINUS TACHYCARDIA LEFT ANTERIOR FASCICULAR BLOCK : Confirmed by: Aysha Faria 20-Nov-2017 09:37:29
== END 2017-11-19 15:07 | disposition home or self-care (01) ==
LOC: ER 07:06
DX: C78.7 Secondary malignant neoplasm of liver and intrahepatic bile duct (principal); Z85.51 Personal history of malignant neoplasm of bladder; R07.9 Chest pain, unspecified; R39.89 Other symptoms and signs involving the genitourinary system; R10.817 Generalized abdominal tenderness; R19.4 Change in bowel habit; I49.3 Ventricular premature depolarization; R00.0 Tachycardia, unspecified; I10 Essential (primary) hypertension; E11.9 Type 2 diabetes mellitus without complications; F17.200 Nicotine dependence, unspecified, uncomplicated; Z85.46 Personal history of malignant neoplasm of prostate; Z90.79 Acquired absence of other genital organ(s); Z79.899 Other long term (current) drug therapy; Z93.6 Other artificial openings of urinary tract status; Z90.6 Acquired absence of other parts of urinary tract
CPT/HCPCS: 93005; 99285; 96374; 36415; 87086; 82553; 82550; 83690; 85025; 85610; 87088; 80053; 81001; 84484; 87186; 71045; 76705; 74177; 93010; J1885; J3490